=== PATIENT | female | born 1995 | race Caucasian/White ===

== ENCOUNTER 2020-02-24 22:08 | Outpatient (CLI) | payer BC | END 2020-02-24 23:31 | disposition home or self-care (01) | LOC: GENOP 22:08 | DX: O42.92 Full-term premature rupture of membranes, unspecified as to length of time between rupture and onset of labor (principal); Z3A.37 37 weeks gestation of pregnancy | CPT/HCPCS: 83518; G0463 ==

== ENCOUNTER 2020-02-28 13:24 | Outpatient (CLI) | payer BC ==
[2020-02-29] MEDS ORDERED: PRENATAL VITAM1 EAC6 PO (18:05)
== END 2020-02-28 15:06 | disposition home or self-care (01) ==
LOC: GENOP 13:24
DX: O42.92 Full-term premature rupture of membranes, unspecified as to length of time between rupture and onset of labor (principal); Z3A.37 37 weeks gestation of pregnancy
CPT/HCPCS: 83518; G0463

== ENCOUNTER 2020-02-29 15:59 | Inpatient (IN) | payer BC ==
[~2020-02-29] VITALS: Ht 160 cm; Wt 99.3 kg
[2020-02-29 16:58] LABS: HEMOGLOBIN 11.3 gm/dl (12.3-15.3); RED BLOOD COUNT 4.03 M/UL (4.00-5.10); WHITE BLOOD COUNT 11.6 K/UL (4.5-11.0)
[2020-02-29] MEDS ORDERED: PRENATAL VITAM1 EAC6 PO (18:05)
[2020-03-03] MEDS ORDERED: COLACE 100MG C100 MG PO (12:19)
[2020-03-03] MEDS ORDERED: IBUPROFEN800 MG PO (12:19)
[2020-03-03] MEDS ORDERED: PERCOCET 10-321 EACH PO (12:19)
[2020-03-03] MEDS ORDERED: INTEGRA PLUS C1 EACH PO (12:19)
== END 2020-03-03 18:06 | disposition home or self-care (01) | DRG 806 ==
LOC: GENOP 15:59 → OB 16:20
PROVIDERS: Obstetrics & Gynecology; ADMIT Obstetrics & Gynecology
PROC: 10E0XZZ Delivery of Products of Conception, External Approach (ICD-10-PCS; principal; 2020-03-01)
PROC: 0U7C7ZZ Dilation of Cervix, Via Natural or Artificial Opening (ICD-10-PCS; 2020-03-01)
PROC: 10H07YZ Insertion of Other Device into Products of Conception, Via Natural or Artificial Opening (ICD-10-PCS; 2020-03-01)
DX: O99.824 Streptococcus B carrier state complicating childbirth (principal); O36.0930 Maternal care for other rhesus isoimmunization, third trimester, not applicable or unspecified; Z37.0 Single live birth; Z20.822 Contact with and (suspected) exposure to COVID-19; O13.4 Gestational [pregnancy-induced] hypertension without significant proteinuria, complicating childbirth; Z3A.38 38 weeks gestation of pregnancy; Z83.3 Family history of diabetes mellitus; Z82.49 Family history of ischemic heart disease and other diseases of the circulatory system; Z84.89 Family history of other specified conditions; O69.81X0 Labor and delivery complicated by cord around neck, without compression, not applicable or unspecified; Z28.89 Immunization not carried out for other reason
CPT/HCPCS: 36415; 51702; 81001; 82247; 82248; 82565; 82570; 83518; 84156; 84450; 84460; 84550; 85014; 85018; 85025; 85379; 85384; 85610; 85730; 86850; 86900; 86901; G0463; J2405; J2590; J7120; U0002